=== PATIENT | female | born 1985 | race Caucasian/White ===

== ENCOUNTER 2024-10-16 19:17 | Emergency (ER) | payer OTHER, SELFPAY ==
[2024-10-16 19:19] VITALS: BP 138/86
[2024-10-16 22:24] VITALS: BMI 26.4
[2024-10-16 22:26] VITALS: BP 125/71
--- NOTE | 2024-10-17 00:36 | ED.GENMED ---
History of Present Illness
General
Chief Complaint: Skin Problem
Source: patient
Exam Limitations: none
Time Seen by Provider: 10/16/24 23:18
Nursing documentation reviewed up to this point in time: agreed with
History of Present Illness
History of Present Illness:
39-year-old female without significant past medical history presenting to the emergency department with concerns of a laceration to the frontal scalp that occurred just prior to arrival when she lifted her head quickly and hitting the edge of the
cabinet. Not on blood thinners no additional concerns no loss of consciousness no numbness weakness vomiting. No neck pain.
Review of Systems
Review of Systems
Allergies reviewed?: Yes
All Other Systems: ROS reviewed and negative except as documented in HPI and ROS
Phy Exam
Physical Exam
Physical Exam:
GENERAL: Alert , in no apparent distress
EYE: pupils equal and reactive
NECK: Supple, no significant adenopathy.
ENT: Laceration to the right side of frontal scalp 2.5 cm in total length subcutaneous in depth. No foreign body seen. o/p clr, mmm.
CARDIAC: Regular rate and rhythm .
LUNGS: Clear breath sounds bilaterally, no acute respiratory distress, no wheezes/rales/rhonchi
ABDOMEN: Soft, without focal tenderness, no r/g, no cvat
NEUROLOGICAL: Alert and oriented, no focal neuro deficits
SKIN: Warm and dry, skin intact.
MUSCULOSKELETAL: No edema, well perfused.
PSYCH: Normal and appropriate interaction.
Course
Vital Signs
Initial and Last Documented VS:
Initial Vital Signs
Temp Pulse Resp BP Pulse Ox
98.4 F 61 18 138/86 98
10/16/24 19:19 10/16/24 19:19 10/16/24 19:19 10/16/24 19:19 10/16/24 19:19
Last Documented Vital Signs
Temp Pulse Resp BP Pulse Ox
98.4 F 60 16 125/71 100
10/16/24 19:19 10/16/24 22:26 10/16/24 22:26 10/16/24 22:26 10/16/24 22:26
Procedures
Laceration Closure
Right Anterior Scalp:
Status of Wound: clean
Size of Wound in cm: 2.5
Description of Wound Edges: sharp
Preparation: cleaned with saline
Anesthesia: 1% Lidocaine with epi
Revision/Debridement: routine- no revision and irrigate-direct pressure
Wound exploration: explored to base- no FB and no tendon involvement
Type of Closure: single layer closure
Skin Closure Material: skin naty
Number of sutures: 2
MDM/Problems Addressed
MDM/Problems Addressed:
39-year-old female presenting to the emergency department today with concerns of a laceration to her frontal scalp after hitting her head on a cabinet prior to arrival. She is a small laceration that was cleaned thoroughly and closed with 2
naty. No evidence of any internal injury no loss of consciousness patient [place] head CT negative. Stable for discharge return precautions given. She is up-to-date with her tetanus shot very low risk for infection.
*Critical Care Note
Total Time (30-74mins, 75-104mins- exclusive of procedures): Not Applicable
ED Attending Note
-
Portions of this chart may have been created with voice recognition software.� Occasional wrong word or��sound alike� substitutions may have occurred due to the inherent limitations of voice recognition software.
Discharge Plan
Departure
Patient Disposition: Home (Routine Discharge)
Date of Disposition: 10/17/24
Time of Disposition: 00:36
Patient with high blood pressure during this ER visit?: No
Condition: Good
Covid-19: Not Applicable
Discharge Problem:
Laceration of scalp
Instructions: Laceration Repair With Naty ED
Prescriptions:
No Action
No Current Medications
0
Referrals:
Fabio Agurire, DO [Family Provider] -
Activity Restrictions/Additional Instructions:
You came to the emergency department today with concerns of a laceration to your scalp. This was cleaned and closed with 2 naty. Please follow-up in 1 week for staple removal. In the meantime please keep the area clean and covered.
Interventions
Interventions:
*Risk Screen - Suicide Last Done: 10/16/24 19:19
*General Assessment Last Done: 10/16/24 19:19
*Neglect/Abuse Screening Last Done: 10/16/24 19:19
*ED- Fall Risk Assessment Last Done: 10/16/24 19:19
*ED COVID-19 Vaccine History Last Done: 10/16/24 19:19
*Nursing Disposition Last Done: 10/17/24 00:43
ED-Skin Assessment Last Done: 10/16/24 22:26
Discharge Date and Time
Discharge Date/Time: 10/17/24 00:43
Print Language: POLISH
== END 2024-10-17 00:43 | disposition home or self-care (01) ==
LOC: EMR 19:17
PROVIDERS: EMERGENCY PHYSICIAN Emergency Medicine; FAMILY PHYSICIAN Family Medicine
DX: S01.01XA Laceration without foreign body of scalp, initial encounter (principal); W22.8XXA Striking against or struck by other objects, initial encounter
CPT/HCPCS: 12001; 99282